=== PATIENT | female | born 1950 | race Caucasian/White ===

== ENCOUNTER 2023-09-24 14:36 | Emergency (ER) | payer MEDICARE ==
--- NOTE | 2023-09-24 14:59 | ERPHSYRPT ---
- History of Present Illness Time Seen by Provider: 09/24/23 14:49 Historian: patient Exam Limitations: no limitations Physician History: The patient is a 73-year-old who has no known cardiac history. She did have a TIA or small stroke. She is on aspirin. This was several years ago. She quit smoking 8 years ago. She got COVID about a month ago. Since that time she has had some irregular heartbeats shortness of breath and at times some chest discomfort and fatigue. She denies any substernal chest pain denies any risk factors for DVT or PE beyond COVID. Denies any swelling in her legs denies any nausea vomiting or diarrhea. Denies any fever chills or cough at this point. Aspirin Treatment Today: 81 mg x 1, provided at home Allergies/Adverse Reactions: Penicillins Allergy (Intermediate, Verified 09/24/23 14:38) Swelling of Face Home Medications: Aspirin [Aspirin EC] 81 mg PO DAILY 09/24/23 [History] - Review of Systems Constitutional: Fatigue Eyes: No Symptoms Ears, Nose, & Throat: No Symptoms Respiratory: Dyspnea Cardiac: Chest Pain, Palpitations Abdominal/Gastrointestinal: No Abdominal Pain, No Nausea, No Vomiting, No Diarrhea Genitourinary Symptoms: No Symptoms, No Dysuria Musculoskeletal: No Back Pain, No Neck Pain Skin: No Rash Neurological: No Dizziness, No Focal Weakness, No Sensory Changes Psychological: No Symptoms Endocrine: No Symptoms All Other Systems: Reviewed and Negative - Past Medical History Pertinent Past Medical History: Yes Neurological History: TIA ENT History: No Pertinent History Cardiac History: No Pertinent History Respiratory History: No Pertinent History Endocrine Medical History: No Pertinent History Musculoskeletal History: No Pertinent History GI Medical History: No Pertinent History History: No Pertinent History Psycho-Social History: No Pertinent History Female Reproductive Disorders: No Pertinent History - Past Surgical History Past Surgical History: No - Social History Smoking Status: Former smoker Alcohol Use: Socially Drug Use: none (Refer to nurses note. Nurses note reviewed.) Significant Family History: no pertinent family hx - Female History Hx Now: No - Nursing Vital Signs Nursing Vital Signs: Initial Vital Signs Temperature 96.0 F 09/24/23 14:39 Pulse Rate 75 09/24/23 14:39 Respiratory Rate 20 09/24/23 14:39 Blood Pressure 142/70 09/24/23 14:39 O2 Sat by Pulse Oximetry 99 09/24/23 14:39 Pain Scale Pain Intensity 7 - Physical Exam General Appearance: no apparent distress, alert Eye Exam: PERRL/EOMI, eyes nml inspection Ears, Nose, Throat Exam: normal ENT inspection, moist mucous membranes Neck Exam: normal inspection, non-tender, supple, full range of motion Respiratory Exam: normal breath sounds, lungs clear, No respiratory distress Cardiovascular Exam: regular rate/rhythm, normal heart sounds Gastrointestinal/Abdomen Exam: soft, No tenderness, No mass Back Exam: normal inspection, No CVA tenderness, No vertebral tenderness Extremity Exam: normal inspection, normal range of motion Neurologic Exam: alert, oriented x 3, cooperative, normal mood/affect, sensation nml, No motor deficits Skin Exam: normal color, warm, dry SpO2 Interpretation: normal SpO2: 99 O2 Delivery: Room Air - Course Nursing assessment & vital signs reviewed: Yes EKG Interpreted by Me: Sinus Rhythm, NORMAL AXIS, NORMAL INTERVALS, NORMAL QRS, Non-specific ST Changes Ordered Tests: Active Orders 24 hr Category Date Time Status EKG-ER Only STAT Care 09/24/23 14:49 Completed CHEST 1 VIEW (PORTABLE) Stat Exams 09/24/23 14:50 Completed CHEST WITH CONTRAST [CT] Stat Exams 09/24/23 15:32 Completed CBC W DIFF Stat Lab 09/24/23 14:50 Completed CMP Stat Lab 09/24/23 14:50 Completed D-DIMER QUANTITATIVE Stat Lab 09/24/23 14:50 Completed NT PRO BNPII Stat Lab 09/24/23 14:50 Completed TROPONIN Q4H Lab 09/24/23 14:50 Completed Lab/Rad Data: Laboratory Result Diagrams 09/24/23 14:50 09/24/23 14:50 Laboratory Results 09/24/23 09/24/23 09/24/23 Range/Units 14:50 14:50 14:50 WBC (4.0-10.5) x10^3/uL RBC (4.1-5.4) x10^6/uL Hgb (12.0-16.0) g/dL Hct (35-47) % MCV (78-100) fL MCH (26-32) pg MCHC (32-36) g/dL RDW (11.5-14.0) % Plt Count (150-450) x10^3/uL MPV (7.5-11.0) fL Gran % (36.0-66.0) % Immature Gran % (Auto) (0.00-0.4) % Nucleat RBC Rel Count (0.00-0.1) % Eos # (Auto) (0-0.5) x10^3/uL Immature Gran # (Auto) (0.00-0.03) x10^3u/L Absolute Lymphs (auto) (1.0-4.6) x10^3/uL Absolute Monos (auto) (0.0-1.3) x10^3/uL Absolute Nucleated RBC (0.00-0.01) x10^3u/L Lymphocytes % (24.0-44.0) % Monocytes % (0.0-12.0) % Eosinophils % (0.00-5.0) % Basophils % (0.0-0.4) % Absolute Granulocytes (1.4-6.9) x10^3/uL Basophils # (0-0.4) x10^3/uL D-Dimer 1.86 H* (0.0-0.50) mg/L Sodium 137 (137-145) mmol/L Potassium 4.2 (3.5-5.1) mmol/L Chloride 104 (98-107) mmol/L Carbon Dioxide 28 (22-30) mmol/L Anion Gap 9.6 (5-15) MEQ/L BUN 17 (7-17) mg/dL Creatinine 0.78 (0.52-1.04) mg/dL Estimated GFR 80.7 ML/MIN Glucose 127 H (74-106) mg/dL Calcium 9.6 (8.4-10.2) mg/dL Total Bilirubin 0.50 (0.2-1.3) mg/dL AST 36 (14-36) U/L ALT 28 (0-35) U/L Alkaline Phosphatase 93 (38-126) U/L Troponin I < 0.012 (0.000-0.034) ng/mL NT-Pro-B Natriuret Pep 73.7 (<300) pg/mL Serum Total Protein 7.5 (6.3-8.2) g/dL Albumin 4.5 (3.5-5.0) g/dL 09/24/23 Range/Units 14:50 WBC 4.7 (4.0-10.5) x10^3/uL RBC 4.19 (4.1-5.4) x10^6/uL Hgb 13.1 (12.0-16.0) g/dL Hct 39.3 (35-47) % MCV 93.8 (78-100) fL MCH 31.3 (26-32) pg MCHC 33.3 (32-36) g/dL RDW 12.5 (11.5-14.0) % Plt Count 184 (150-450) x10^3/uL MPV 9.5 (7.5-11.0) fL Gran % 58.0 (36.0-66.0) % Immature Gran % (Auto) 0.2 (0.00-0.4) % Nucleat RBC Rel Count 0.0 (0.00-0.1) % Eos # (Auto) 0.10 (0-0.5) x10^3/uL Immature Gran # (Auto) 0.01 (0.00-0.03) x10^3u/L Absolute Lymphs (auto) 1.46 (1.0-4.6) x10^3/uL Absolute Monos (auto) 0.35 (0.0-1.3) x10^3/uL Absolute Nucleated RBC 0.00 (0.00-0.01) x10^3u/L Lymphocytes % 31.3 (24.0-44.0) % Monocytes % 7.5 (0.0-12.0) % Eosinophils % 2.1 (0.00-5.0) % Basophils % 0.9 (0.0-0.4) % Absolute Granulocytes 2.71 (1.4-6.9) x10^3/uL Basophils # 0.04 (0-0.4) x10^3/uL D-Dimer (0.0-0.50) mg/L Sodium (137-145) mmol/L Potassium (3.5-5.1) mmol/L Chloride (98-107) mmol/L Carbon Dioxide (22-30) mmol/L Anion Gap (5-15) MEQ/L BUN (7-17) mg/dL Creatinine (0.52-1.04) mg/dL Estimated GFR ML/MIN Glucose (74-106) mg/dL Calcium (8.4-10.2) mg/dL Total Bilirubin (0.2-1.3) mg/dL AST (14-36) U/L ALT (0-35) U/L Alkaline Phosphatase (38-126) U/L Troponin I (0.000-0.034) ng/mL NT-Pro-B Natriuret Pep (<300) pg/mL Serum Total Protein (6.3-8.2) g/dL Albumin (3.5-5.0) g/dL Sinus rhythm rate of [address] wave flattening nonspecific ST wave changes interpreted contemporaneously by myself Name: AISHWARYATITO BAILEYKI Attending Physician: EMILIANA KNOWLES IMAGING REPORT : 1950 Age: 73 Sex: F Location: ED Report #: [id number] Exam Date: 09/24/23 Status: [facility] ER Radiology #: Procedures: [id number] RAD/CHEST 1 VIEW (PORTABLE) Indication: Chest pain. Comparison: None Portable chest demonstrates normal heart and lungs. Bony thorax intact with osteopenia. No acute findings. Reported by: VIVIAN MACKEY DO Signed by: VIVIAN MACKEY DO Signed date/time: 09/24/23 1607 Copies to: LINDA SANDERS CHAD Procedures: [id number] CT/CHEST WITH CONTRAST Indication: Short of breath. Chest pain. Elevated d-dimer. Multiple contiguous axial images obtained through the chest using 80 cc Isovue 370 contrast and PE protocol. Comparison: None Good opacification of the pulmonary arteries to include the lobar and segmental branches. No pulmonary embolus. Heart not enlarged. Aorta is normal in course and caliber. No pathologic mediastinal/hilar lymphadenopathy. Lungs demonstrates 3 mm posterior left lower lobe subpleural noncalcified nodule (image 45). No other pulmonary mass/nodule, infiltrate, effusion, or pneumothorax. Bony thorax intact with minimal degenerative changes throughout the spine. Limited upper abdomen including adrenal glands are unremarkable. Impression: 1. Negative pulmonary embolus. No acute cardiopulmonary abnormalities. 2. Indeterminant 3 mm left lower lobe noncalcified nodule. Too small for PET/CT. Outside comparison studies recommended. If not available, follow-up per Fleischner guidelines. Reported by: VIVIAN MACKEY DO Signed by: VIVIAN MACKEY DO Signed nigel e/time: 09/24/23 1618 Copies to: LINDA SANDERS CHAD - Progress Progress Note: Medical Decision Making: Differential Diagnosis: Acute myocardial infarction, Aneurysm of thoracic aorta, Bronchitis, CAD, Chest wall pain, Coronary artery d isease, Costochondritis, [place] - Myocardial infarction, Myocarditis, Myofascial pain, Pulmonary embolism; Diagnostic Evaluation: History AND physical examination, Xrays, 12 lead ECG, Blood work, buckram sewer; Amount and complexity of data: The EM Physician performed a face to face evaluation in this patient, Current EKG reviewed, Current labs reviewed, Current x-rays reviewed, Medical Records reviewed; Impressions: This patient has had this pain for quite some time and would expect some CE changes if ACS. I feel this story is low risk for ACS. If the diagnostic evaluation is satisfactory, then I will discharge the patient with close follow-up and further testing, such as a timely stress test. The patient understands this diagnostic plan.; Nursing Orders: Real Property Evaluator and Pulse Ox, Oxygen, Start IV The patient has no significant risk factors for DVT or PE. The patient will get a D-dimer checked as well. EKG was nondiagnostic. The patient this point will be evaluated. Because the patient's had symptoms for over a month I do feel this is possibly long COVID or COVID-related. We will make sure there is no acute life-threatening emergencies. She is establishing primary care. 09/24/23 14:57 09/24/23 15:35 The patient's D-dimer was elevated. The patient will get a CT of the chest to rule out PE. 09/24/23 16:34 The patient's workup including CT of the chest was negative for PE. No signs of an acute life-threatening cause of chest pain. The patient is stable for outpatient management. The patient has a small pulmonary nodule. The patient will follow-up with primary care. Counseled pt/family regarding: lab results, diagnosis, need for follow-up, rad results - Departure Departure Disposition: Home Clinical Impression: Chest pain in adult, Palpitations Condition: Good Critical Care Time: No Referrals: LINDA SANDERS DO [Primary Care Provider] - Follow up/PCP as directed Instructions: Chest Pain (DC), Palpitations (DC) Additional Instructions: Thank you for choosing our Emergency Department for your healthcare! Please t angel luis your medicines prescribed as directed and be assured that you follow up with the physician provided or your PCP in the next 1-2 days to assure you are improving. All medical problems cannot be reasonably diagnosed in your ED visit today. Return for any changes or concerns, including if your condition does not improve or you are unable to obtain follow-up. Some final results, including radiology reports, do not return the same day, but are available on the patient portal or can be obtained through your PCP. Impression: 1. Negative pulmonary embolus. No acute cardiopulmonary abnormalities. 2. Indeterminant 3 mm left lower lobe noncalcified nodule. Too small for PET/CT. Outside comparison studies recommended. If not available, follow-up per Fleischner guidelines. You have a small pulmonary nodule as described above. Follow-up with primary care. You may need a repeat chest x-ray or CT scan in 6 months to a year.
[2023-09-24 15:01] LABS: Absolute Neutrophil Ct (ANC) 2.71 x10^3/uL (1.4-6.9); BASOPHIL % 0.9 % (0.0-0.4); Basophil (Absolute #) 0.04 x10^3/uL (0-0.4); Eosinophil % 2.1 % (0.00-5.0); Hematocrit 39.3 % (35-47); Hemoglobin 13.1 g/dL (12.0-16.0); IMMATURE GRAN # 0.01 x10^3u/L (0.00-0.03); IMMATURE GRAN % 0.2 % (0.00-0.4); Lymphocyte (Absolute #) 1.46 x10^3/uL (1.0-4.6); Lymphocytes % 31.3 % (24.0-44.0); Mean Cell Volume 93.8 fL (78-100); Mean Corpuscular Hemoglobin 31.3 pg (26-32); Mean Corpuscular Hgb Concent. 33.3 g/dL (32-36); Mean Platelet Volume 9.5 fL (7.5-11.0); Monocyte (Absolute #) 0.35 x10^3/uL (0.0-1.3); Monocytes % 7.5 % (0.0-12.0); Platelet Count 184 x10^3/uL (150-450); Red Blood Count 4.19 x10^6/uL (4.1-5.4); Red Cell Distribution Width 12.5 % (11.5-14.0); White Blood Count 4.7 x10^3/uL (4.0-10.5)
[2023-09-24 15:06] VITALS: TEMP 96
[2023-09-24 15:07] VITALS: PULSE 67
[2023-09-24 15:24] LABS: ALBUMIN 4.5 g/dL (3.5-5.0); ANION GAP 9.6 MEQ/L (5-15); BILIRUBIN,TOTAL 0.5 mg/dL (0.2-1.3); Calcium 9.6 mg/dL (8.4-10.2); Creatinine 1 0.78 mg/dL (0.52-1.04); EST GLOMERULAR FILTRATION RATE 80.7 ML/MIN; NT PRO BNPII 73.7 pg/mL (<300); Potassium 4.2 mmol/L (3.5-5.1); Total Protein 7.5 g/dL (6.3-8.2)
--- NOTE | 2023-09-24 16:07 | XRAY ---
Indication: Chest pain. Comparison: None Portable chest demonstrates normal heart and lungs. Bony thorax intact with osteopenia. No acute findings.
--- NOTE | 2023-09-24 16:18 | XRAY ---
Indication: Short of breath. Chest pain. Elevated d-dimer. Multiple contiguous axial images obtained through the chest using 80 cc Isovue 370 contrast and PE protocol. Comparison: None Good opacification of the pulmonary arteries to include the lobar and segmental branches. No pulmonary embolus. Heart not enlarged. Aorta is normal in course and caliber. No pathologic mediastinal/hilar lymphadenopathy. Lungs demonstrates 3 mm posterior left lower lobe subpleural noncalcified nodule (image 45). No other pulmonary mass/nodule, infiltrate, effusion, or pneumothorax. Bony thorax intact with minimal degenerative changes throughout the spine. Limited upper abdomen including adrenal glands are unremarkable. Impression: 1. Negative pulmonary embolus. No acute cardiopulmonary abnormalities. 2. Indeterminant 3 mm left lower lobe noncalcified nodule. Too small for PET/CT. Outside comparison studies recommended. If not available, follow-up per Fleischner guidelines.
[2023-09-24 16:26] VITALS: BP 128/75; RESP 17; O2SAT 99
== END 2023-09-24 16:49 | disposition home or self-care (01) ==
LOC: ED 14:36
DX: R07.9 Chest pain, unspecified (principal); R00.2 Palpitations; Z79.899 Other long term (current) drug therapy
CPT/HCPCS: 36000; 36415; 71045; 71260; 80053; 83880; 84484; 85025; 85379; 93005; 99284